=== PATIENT | male | born 2000 | race Caucasian/White ===

== ENCOUNTER 2023-11-02 11:14 | Emergency (ER) | payer OTHER ==
[2023-11-02 11:43] VITALS: BP 139/75; PULSE 86; RESP 19; TEMP 98.9; BMI 21.7
[2023-11-02 13:19] LABS: BASO % 0.5 % (0-2.0); EOS % 0.1 % (0-4.5); HEMATOCRIT 40.3 % (35.4-49); HEMOGLOBIN 13.7 GM/dL (11.7-16.9); LYMPH % 27.2 % (8-40); MCH 29.6 pg (25.7-33.7); MCHC 34.1 g/dl (32.0-35.9); MEAN CELL VOLUME 86.9 fl (80-96); NEUT % 62.2 % (42.8-82.8); PLATELET COUNT 280 10^3/uL (134-434); RBC 4.64 M/mm3 (4.00-5.60); RDW 13.3 % (11.9-15.9); WHITE BLOOD COUNT 15.1 K/mm3 (4.0-10.0)
[2023-11-02] MEDS ORDERED: KETOROLAC TROMETHAMINE 30 MG/1 ML VIAL ONE (13:36)
[2023-11-02] MEDS: KETOROLAC TROMETHAMINE 30 MG/1 ML VIAL IVPUSH ONE (13:50)
[2023-11-02 13:55] LABS: CALCIUM 9.5 mg/dL (8.5-10.1); POTASSIUM 4.2 mmol/L (3.5-5.1)
[2023-11-02 13:57] LABS: BLOOD UREA NITROGEN 12.5 mg/dL (7-18)
[2023-11-02] MEDS ORDERED: DEXAMETHASONE SOD PHOSPHATE 10 MG/1 ML VIAL ONE (14:38)
[2023-11-02] MEDS: DEXAMETHASONE SOD PHOSPHATE 10 MG/1 ML VIAL IVPUSH ONE (15:25)
[2023-11-02] MEDS ORDERED: AMPICILLIN NA/SULBACTAM NA 3 GM/100 ML BAG IVPB ONE (16:57)
[2023-11-02] MEDS ORDERED: CEFTRIAXONE 2 GM/100 ML BAG IVPB ONE (17:06)
[2023-11-02] MEDS: CEFTRIAXONE 2 GM-D5W BAG 2 GM/50 ML BAG IVPB ONE (17:11)
[2023-11-02] MEDS: AMPICILLIN NA/SULBACTAM NA 3 GM in SODIUM CHLORIDE 100 ML IVPB ONE (17:12)
== END 2023-11-02 18:16 | disposition home or self-care (01) ==
LOC: JER 11:14
PROC: 3E03329 Introduction of Other Anti-infective into Peripheral Vein, Percutaneous Approach (ICD-10-PCS; principal; 2023-11-02)
PROC: 3E033GC Introduction of Other Therapeutic Substance into Peripheral Vein, Percutaneous Approach (ICD-10-PCS; 2023-11-02)
PROC: 3E0333Z Introduction of Anti-inflammatory into Peripheral Vein, Percutaneous Approach (ICD-10-PCS; 2023-11-02)
DX: J36 Peritonsillar abscess (principal); R50.9 Fever, unspecified; R53.83 Other fatigue; R51.9 Headache, unspecified
CPT/HCPCS: 36415; 70492-TC; 80048; 85025; 99284-25; J1100